=== PATIENT | male | born 1960 | race Caucasian/White ===

== ENCOUNTER 2024-05-22 11:16 | Day surgery (SDC) | payer BC ==
[2024-05-18 12:22] LABS: BASOPHILS % (AUTO) 0.5 % (0-1); EOSINOPHILS # (AUTO) 0.4 X10'3 (0-0.9); EOSINOPHILS % (AUTO) 5.6 % (0-6); HEMATOCRIT 43.2 % (42.0-52.0); HEMOGLOBIN 14.4 g/dl (14.0-17.9); LYMPHOCYTES # (AUTO) 1.2 X10'3 (1.1-4.8); LYMPHOCYTES % (AUTO) 14.8 % (21-51); MEAN CORPUSCULAR HEMOGLOBIN 29.2 PG (27.0-31.0); MEAN CORPUSCULAR HGB CONC 33.2 g/dL (33.0-36.5); MEAN CORPUSCULAR VOLUME 87.9 FL (78-98); MEAN PLATELET VOLUME 8.8 FL (7.4-10.4); MONOCYTES # (AUTO) 0.6 X10'3 (0-0.9); MONOCYTES % (AUTO) 8.2 % (2-12); NEUTROPHILS # (AUTO) 5.6 X10'3 (1.8-7.7); NEUTROPHILS % (AUTO) 70.9 % (42-75); PLATELET COUNT 337 X10'3 (140-440); RED BLOOD COUNT 4.92 X10'6 (4.70-6.10); WHITE BLOOD COUNT 7.8 X10'3 (4.5-11.0)
[2024-05-18 12:31] LABS: APTT 30 SECONDS (22-32); PROTHROMBIN TIME 10.9 SECONDS (9.0-12.0)
[2024-05-18 12:32] LABS: CHOL/HDL RATIO 3.3 (0.00-4.99); CHOLESTEROL 171 MG/DL (0-200); HDL CHOLESTEROL 52 MG/DL (35-60); LDL CHOLESTEROL 106 MG/DL (50-100); TRIGLYCERIDES 69 MG/DL (20-135)
[2024-05-22] VITALS (8 sets, daily range): BP systolic 137–153; BP diastolic 80–94; PULSE 59–64; RESP 16; TEMP 97.7; O2SAT 95–97
[~2024-05-22] VITALS: Ht 182.9 cm; Wt 124.8 kg
[2024-05-22] MEDS ORDERED: ASPI81TA52 PO (12:06)
[2024-05-22] MEDS ORDERED: NITR0.4T48 SL (12:07)
[2024-05-22] MEDS ORDERED: MULT-1085 PO (12:07)
[2024-05-22] MEDS ORDERED: LISI5TAB22 PO (12:09)
[2024-05-22] MEDS ORDERED: ISOS30TA84 PO (12:09)
[2024-05-22] MEDS ORDERED: CARV6.2553 PO (12:09)
[2024-05-22] MEDS ORDERED: CARV3.1244 PO (12:09)
[2024-05-22] MEDS ORDERED: ROSU40TA89 PO (12:09)
[2024-05-22 12:10] LABS: ALANINE AMINOTRANSFERASE 51 U/L (12-78); ALBUMIN 3.9 G/DL (3.4-5.0); ALBUMIN/GLOBULIN RATIO 0.9 (1.1-1.5); ALKALINE PHOSPHATASE 82 IU/L (46-116); ANION GAP 8 (8-16); ASPARTATE AMINO TRANSFERASE 32 U/L (10-37); BILIRUBIN,TOTAL 0.9 MG/DL (0.1-1.0); BLOOD UREA NITROGEN 15 MG/DL (7-18); BUN/CREATININE RATIO 16.9 (10.0-20.0); CALCIUM 9.1 MG/DL (8.5-10.1); CHLORIDE 102 MMOL/L (99-107); CREATININE 0.89 MG/DL (0.60-1.10); GLUCOSE 91 MG/DL (70-104); POTASSIUM 4.1 MMOL/L (3.5-5.1); SODIUM 140 MMOL/L (135-145); TOTAL CARBON DIOXIDE 29.6 MMOL/L (24-32); TOTAL PROTEIN 8.2 G/DL (6.4-8.2); eCRCL 93 ML/MIN; eGFR 86 ML/MIN
[2024-05-22] MEDS ORDERED: nitroGLYCERIN 500mcg/5mL D5W 5 ML IV ONE (13:39)
[2024-05-22] MEDS ORDERED: midazolam 1 mg/ML 2ml injection ONE (13:39)
[2024-05-22] MEDS ORDERED: fentaNYL/PF 50MCG/1 ML 2ML syringe ONE (13:39)
[2024-05-22] MEDS ORDERED: heparin 1,000unit/ml 10ml vial 10 ML ONE (13:39)
[2024-05-22] MEDS ORDERED: verapamil 2.5 mg/ml inj IV ONE (13:39)
[2024-05-22] MEDS ORDERED: LIDOcaine 1% (10mg/ml) 2ml vial ONE (13:39)
[2024-05-22] MEDS ORDERED: iohexol 350MG/ML 100ml bottle IV ONE ×2 (13:39→14:36)
[2024-05-22] MEDS: diphenhydrAMINE 25mg capsule PO PRN (13:47)
[2024-05-22] MEDS: LORazepam 0.5 MG tablet PO PRN (13:47)
[2024-05-22] MEDS: normal saline 1,000 ML IV SCH (13:48)
[2024-05-22] MEDS ORDERED: LIDOcaine 1% 30ml preserv. free vial ONE (14:13)
[2024-05-22] MEDS ORDERED: ondansetron/PF 4mg/2ml inj IV PRN (15:30)
[2024-05-22] MEDS ORDERED: proCHLORperazine 10 MG/2 ml inj IV PRN (15:30)
== END 2024-05-22 17:30 | disposition home or self-care (01) ==
LOC: SSTAY O 11:16
PROVIDERS: ATTEND Internal Medicine Interventional Cardiology
DX: T82.855A Stenosis of coronary artery stent, initial encounter (principal); I25.118 Atherosclerotic heart disease of native coronary artery with other forms of angina pectoris; I11.9 Hypertensive heart disease without heart failure; E78.00 Pure hypercholesterolemia, unspecified; Z79.82 Long term (current) use of aspirin; Z79.899 Other long term (current) drug therapy; Y83.8 Other surgical procedures as the cause of abnormal reaction of the patient, or of later complication, without mention of misadventure at the time of the procedure; Y92.89 Other specified places as the place of occurrence of the external cause
CPT/HCPCS: 36415; 80053; 80061; 85025; 85610; 85730; 93005; 93458; 99152; 99153; J1644; J2003; J2250; J3010; J3490; J7030; Q0163; Q9967; A6258; A6402; C1751; C1769; C1894